=== PATIENT | female | born 1985 | race African-American/Black ===

== ENCOUNTER 2016-03-15 18:51 | Emergency (ER) | payer OTHER ==
--- NOTE | 2016-03-15 21:25 | EDDOCDS ---
Nurse's Notes [facility] Name: Melvin Swanson Age: 30 yrs Sex: Female : 1985 Arrival Date: 03/15/2016 Time: 18:51 Bed TR7 Private MD: Unknown, Family Dr Diagnosis: Abnormal uterine and vaginal bleeding, unspecified-retained P.O.C. Presentation: 03/15 18:56 Presenting complaint: Patient states: diagnosed having miscarriage January 22. Took hs1 methotrexate and followed up with MD and was told HCG levels still high. Patient reported that bleeding occurred for 2 weeks after that and rechecked of HCG still rising in late January. Again bled for another 2 weeks and recheck of HCG levels are 5000 in beginning of February, and OB there states needs to have rechecked when she gets here to [place]. Patient states she needs to see an OBGYN for follow up and is here for referral and here to check HCG levels as she recently moved during this week. Patient states bleeding started again on Tuesday and feels like a heavy period with blood blots. Risk factors: The patient reports no loss of conciousness prior to arrival. This patient has not had a hysterectomy. This patient has not begun menopause. Adult Sepsis Screening: The patient does not have new or worsening altered mentation. Patient's respiratory rate is less than 22. Systolic blood pressure is greater than 100. Patient has a qSOFA score of 0- Negative Sepsis Screen. Suicide/Homicide risk assessment- the patient denies having any suicidal and/or homicidal ideations and does not present with any other emotional, behavioral or mental health complaints. Status: The patient is a dependent. Transition of care: patient was not received from another setting of care. 18:56 Acuity: MIKAELA Level 3 hs1 18:56 Method Of Arrival: Walkin/Carried/Asstd hs1 Triage Assessment: 19:04 General: Appears in no apparent distress, Behavior is appropriate for age, cooperative. hs1 Pain: Denies pain. Pt Declines HIV testing. Neurological: Level of Consciousness is awake, alert, obeys commands, Oriented to person, place, time. Respiratory: No deficits noted. : Reports vaginal bleeding that is with clots moderate flow. 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 Vitamin Oral tab 1 tab once daily - PMHx: none; - PSHx: none; - Social history: Smoking status: Patient states was never smoker of tobacco. No barriers to communication noted, The patient speaks fluent Croatian, Speaks appropriately for age. - Family history: Not pertinent. - : The pt / caregiver states he / she is not on anticoagulants. Home medication list is obtained from the patient. - Exposure Risk Screening:: None identified. Screenin:04 Screening information is obtained from the patient. Fall risk: No risks identified. hs1 Assistance ADL's: requires no assistance with activities of daily living. Abuse/DV Screen: The patient / caregiver reports he/she is: not in a situation that causes fear, pain or injury. Nutritional screening: No deficits noted. Advance Directives: There is no active DNR order. home support is adequate. Assessment: 21:10 General: Appears in no apparent distress, comfortable, Behavior is appropriate for age, pml cooperative. Neurological: Level of Consciousness is awake, alert, Oriented to person, place, time. Cardiovascular: Capillary refill < 3 seconds. Respiratory: Airway is patent Respiratory effort is even, unlabored. GI: Abdomen is non- distended. Derm: Skin is normal. 21:10 General: pt requesting to leave AMA - does not want to complete ultrasound. reviewed pml risks of AMA including worsening condition, illness, and benefits of staying. pt verbalized understanding. . Vital Signs: 18:53 BP 126 / 62; Pulse 72; Resp 18 S; Temp 97.7(O); Pulse Ox 100% on R/A; Weight 64.41 kg dd6 (R); Height 5 ft. 5 in. (165.10 cm) (R); 18:53 Body Mass Index 23.63 (64.41 kg, 165.10 cm) dd6 Vitals: 18:53 Log In Time: March 15, 2016 at 18:51. dd6 ED Course: 18:53 Patient visited by Ramón Luciano PCA. dd6 18:53 Unknown, Family is Private Physician. dd6 18:53 Patient moved to Waiting dd6 18:54 Patient moved to Pre RCE dd6 19:03 Triage Initiated hs1 19:28 Patient moved to Triage 3 jmb 19:39 [facility] cc10 19:39 Ihsan Turner DO is Attending Physician. cc10 19:41 Patient moved to PD b 19:49 Patient visited by Gregorio Mcnally PA-C. cc10 19:49 Patient visited by Gregorio Mcnally PA-C. cc10 19:57 Hcg, Serum Quantitative Sent. ar3 21:04 Ruma Reed OB is Referral Physician. cc10 21:10 The patient / caregiver is instructed regarding the plan of care and ED course. Patient pml has correct armband on for positive identification. Bed in low position. Call light in reach. 21:10 No IV's were initiated during this patient's visit. pml 21:10 No procedures done that require assistance. pml 21:11 Patient moved to TR7 [facility] Order Results: Lab Order: Hcg, Serum Quantitative; SPEC'M 03/15/16 19:57 Test: HCG, SERUM QUANTITATIVE; Value: 7333; Units: MIU/ML; Status: F Test Note: ; GESTATIONAL AGE APPROXIMATE HCG RANGE (MIU/ML) 0.2-1 WEEK 5-50 1-2 WEEKS 50-500 2-3 WEEKS 100-5,000 3-4 WEEKS 500-10,000 4-5 WEEKS 1,000-50,000 5-6 WEEKS 10,000-100,000 6-8 WEEKS 15,000-200,000 2-3 MONTHS 10,000-100,000 NON FEMALES LESS THAN 3.0 Patient samples may contain human heterophilic antibodies that could react with immunoassays to give falsely elevated or depressed results. This assay has been designed to minimize interference from heterophilic antibodies. Elevated hCG levels have also been associated with trophoblastic disease and nontrophoblastic neoplasms. The possibility of having these diseases should be considered before a diagnosis of is made. This test is not intended for use as a surrogate marker for aiding in the diagnosis or monitoring the treatment of cancer patients. BeVocal methodology. Outcome: 21:04 Patient left against medical advice. cc10 21:10 Discharge Assessment: Patient awake, alert and oriented x 3. No cognitive and/or pml functional deficits noted. Patient verbalized understanding of disposition instructions. patient administered narcotics - no. The following High Risk Discharge criteria are identified: Yes, PFS and charge aware. Discharged to home ambulatory. Condition: good Condition: stable. Discharge instructions given to patient, Instructed on discharge instructions, follow up and referral plans. medication usage, Demonstrated understanding of instructions, medications, Pt was receptive of discharge instructions/ teaching. No special radiology studies were completed. Property sent home with patient. 21:24 Patient left the ED. pml Signatures: Ramón Luciano, CEMENTER HAND CEMENTER HAND dd6 Mee Gomez, CEMENTER HAND CEMENTER HAND ar3 Connie Cárdenas RN RN hs1 Joann BaeRN RN pml Judah VasquezRN RN Gregorio Hoskins PA-C PA-C cc10 Corrections: (The following items were deleted from the chart) 21:12 21:10 Assist provider with arterial line placement pml pml MTDD
--- NOTE | 2016-03-15 21:25 | EDDOCDS ---
Physician Documentation [facility] Name: Melvin Swanson Age: 30 yrs Sex: Female : 1985 Arrival Date: 03/15/2016 Time: 18:51 Bed TR7 Private MD: Unknown, Family Dr Disposition: 03/15/16 21:04 Patient has left against medical advice. Impression: Abnormal uterine and vaginal bleeding, unspecified - retained P.O.C.. - Patients states they are going to Home/Self Care. - Condition is Stable. - Discharge Instructions: Abnormal Uterine Bleeding. Medication Reconciliation form. Follow up: Ruma Reed, OB; When: Call to arrange an appointment; Reason: Wound/Symptom Recheck, Recheck today's complaints, Worsening of conditions, Continuance of care. - Problem is an ongoing problem. - Symptoms are unchanged. Historical: - Allergies: no known allergies; - Home Meds: 1. Vitamin Oral tab 1 tab once daily - PMHx: none; - PSHx: none; - Social history: Smoking status: Patient states was never smoker of tobacco. No barriers to communication noted, The patient speaks fluent Kittitian, Speaks appropriately for age. - Family history: Not pertinent. - : The pt / caregiver states he / she is not on anticoagulants. Home medication list is obtained from the patient. - Exposure Risk Screening:: None identified. 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 5 in. (165.10 cm) (R); 18:53 Body Mass Index 23.63 (64.41 kg, 165.10 cm) dd6 MDM: 19:50 Hcg, Serum Quantitative Ordered. EDMS 20:50 Hcg, Serum Quantitative Reviewed. cc10 Signatures: Dispatcher [employer] EDConnie Villa RN RN hs1 Joann Bae RN RN pml Gregorio Mcnally, PACharanC PACharanC cc10 MTDD
--- NOTE | 2016-03-17 22:24 | EDDOCDS ---
Physician Documentation [facility] Name: Melvin Swanson Age: 30 yrs Sex: Female : 1985 Arrival Date: 03/15/2016 Time: 18:51 Bed TR7 Private MD: Unknown, Family Dr Disposition: 03/15/16 21:04 Patient has left against medical advice. Impression: Abnormal uterine and vaginal bleeding, unspecified - retained P.O.C.. - Patients states they are going to Home/Self Care. - Condition is Stable. - Discharge Instructions: Abnormal Uterine Bleeding. Medication Reconciliation form. Follow up: Ruma Reed, OB; When: Call to arrange an appointment; Reason: Wound/Symptom Recheck, Recheck today's complaints, Worsening of conditions, Continuance of care. - Problem is an ongoing problem. - Symptoms are unchanged. Historical: - Allergies: no known allergies; - Home Meds: 1. Vitamin Oral tab 1 tab once daily - PMHx: none; - PSHx: none; - Social history: Smoking status: Patient states was never smoker of tobacco. No barriers to communication noted, The patient speaks fluent Cape Verdean, Speaks appropriately for age. - Family history: Not pertinent. - : The pt / caregiver states he / she is not on anticoagulants. Home medication list is obtained from the patient. - Exposure Risk Screening:: None identified. 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 5 in. (165.10 cm) (R); 18:53 Body Mass Index 23.63 (64.41 kg, 165.10 cm) dd6 MDM: 19:50 Hcg, Serum Quantitative Ordered. EDMS 20:50 Hcg, Serum Quantitative Reviewed. cc10 22:07 [facility] Payment Agreement was scanned into [employer] and attached to record. gjb 22:07 Financial registration complete. gjb 03/16 11:10 Refusal of Services was scanned into [employer] and attached to record. gb 11:10 T-Sheet-- Draft Copy was scanned into [employer] and attached to record. gb Signatures: Dispatcher [employer] EDMS Breanna Willis, Reg Reg gb Connie Cárdenas RN RN hs1 Joann BaeRN RN pml Gregorio Mcnally, PACharanC PAFunmilayo cc10 Ruth Calderon The chart was reviewed and I authenticate all verbal orders and agree with the evaluation and treatment provided.Attachments: 03/15 22:07 [facility] Payment Agreement zohreh 11:10 T-Sheet-- Draft Copy gb Chart Complete MTDD
--- NOTE | 2016-03-17 22:24 | EDDOCDS ---
Physician Documentation [facility] Name: Melvin Swanson Age: 30 yrs Sex: Female : 1985 Arrival Date: 03/15/2016 Time: 18:51 Bed TR7 Private MD: Unknown, Family Dr Disposition: 03/15/16 21:04 Patient has left against medical advice. Impression: Abnormal uterine and vaginal bleeding, unspecified - retained P.O.C.. - Patients states they are going to Home/Self Care. - Condition is Stable. - Discharge Instructions: Abnormal Uterine Bleeding. Medication Reconciliation form. Follow up: Ruma Reed, OB; When: Call to arrange an appointment; Reason: Wound/Symptom Recheck, Recheck today's complaints, Worsening of conditions, Continuance of care. - Problem is an ongoing problem. - Symptoms are unchanged. Historical: - Allergies: no known allergies; - Home Meds: 1. Vitamin Oral tab 1 tab once daily - PMHx: none; - PSHx: none; - Social history: Smoking status: Patient states was never smoker of tobacco. No barriers to communication noted, The patient speaks fluent Nepalese, Speaks appropriately for age. - Family history: Not pertinent. - : The pt / caregiver states he / she is not on anticoagulants. Home medication list is obtained from the patient. - Exposure Risk Screening:: None identified. 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 5 in. (165.10 cm) (R); 18:53 Body Mass Index 23.63 (64.41 kg, 165.10 cm) dd6 MDM: 19:50 Hcg, Serum Quantitative Ordered. EDMS 20:50 Hcg, Serum Quantitative Reviewed. cc10 22:07 [facility] Payment Agreement was scanned into [employer] and attached to record. gjb 22:07 Financial registration complete. gjb 03/16 11:10 Refusal of Services was scanned into [employer] and attached to record. gb 11:10 T-Sheet-- Draft Copy was scanned into [employer] and attached to record. gb Signatures: Dispatcher [employer] EDMS Breanna Willis, Reg Reg gb Connie Cárdenas RN RN hs1 Joann BaeRN RN pml Gregorio Mcnally, PACharanC PAFunmilayo cc10 Ruth Calderon The chart was reviewed and I authenticate all verbal orders and agree with the evaluation and treatment provided.Attachments: 03/15 22:07 [facility] Payment Agreement zohreh 11:10 T-Sheet-- Draft Copy gb Chart Complete MTDD
--- NOTE | 2016-03-17 22:25 | EDDOCDS ---
Nurse's Notes [facility] Name: Melvin Swanson Age: 30 yrs Sex: Female : 1985 Arrival Date: 03/15/2016 Time: 18:51 Bed TR7 Private MD: Unknown, Family Dr Diagnosis: Abnormal uterine and vaginal bleeding, unspecified-retained P.O.C. Presentation: 03/15 18:56 Presenting complaint: Patient states: diagnosed having miscarriage January 22. Took hs1 methotrexate and followed up with MD and was told HCG levels still high. Patient reported that bleeding occurred for 2 weeks after that and rechecked of HCG still rising in late January. Again bled for another 2 weeks and recheck of HCG levels are 5000 in beginning of February, and OB there states needs to have rechecked when she gets here to [place]. Patient states she needs to see an OBGYN for follow up and is here for referral and here to check HCG levels as she recently moved during this week. Patient states bleeding started again on Tuesday and feels like a heavy period with blood blots. Risk factors: The patient reports no loss of conciousness prior to arrival. This patient has not had a hysterectomy. This patient has not begun menopause. Adult Sepsis Screening: The patient does not have new or worsening altered mentation. Patient's respiratory rate is less than 22. Systolic blood pressure is greater than 100. Patient has a qSOFA score of 0- Negative Sepsis Screen. Suicide/Homicide risk assessment- the patient denies having any suicidal and/or homicidal ideations and does not present with any other emotional, behavioral or mental health complaints. Status: The patient is a dependent. Transition of care: patient was not received from another setting of care. 18:56 Acuity: MIKAELA Level 3 hs1 18:56 Method Of Arrival: Walkin/Carried/Asstd hs1 Triage Assessment: 19:04 General: Appears in no apparent distress, Behavior is appropriate for age, cooperative. hs1 Pain: Denies pain. Pt Declines HIV testing. Neurological: Level of Consciousness is awake, alert, obeys commands, Oriented to person, place, time. Respiratory: No deficits noted. : Reports vaginal bleeding that is with clots moderate flow. 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 Vitamin Oral tab 1 tab once daily - PMHx: none; - PSHx: none; - Social history: Smoking status: Patient states was never smoker of tobacco. No barriers to communication noted, The patient speaks fluent Guatemalan, Speaks appropriately for age. - Family history: Not pertinent. - : The pt / caregiver states he / she is not on anticoagulants. Home medication list is obtained from the patient. - Exposure Risk Screening:: None identified. Screenin:04 Screening information is obtained from the patient. Fall risk: No risks identified. hs1 Assistance ADL's: requires no assistance with activities of daily living. Abuse/DV Screen: The patient / caregiver reports he/she is: not in a situation that causes fear, pain or injury. Nutritional screening: No deficits noted. Advance Directives: There is no active DNR order. home support is adequate. Assessment: 21:10 General: Appears in no apparent distress, comfortable, Behavior is appropriate for age, pml cooperative. Neurological: Level of Consciousness is awake, alert, Oriented to person, place, time. Cardiovascular: Capillary refill < 3 seconds. Respiratory: Airway is patent Respiratory effort is even, unlabored. GI: Abdomen is non- distended. Derm: Skin is normal. 21:10 General: pt requesting to leave AMA - does not want to complete ultrasound. reviewed pml risks of AMA including worsening condition, illness, and benefits of staying. pt verbalized understanding. . Social Work Consult: 21:59 LWBS/AMA AMA: Patient is refusing further stabilizing treatment at [facility], although ml4 offered treatment regardless of method of payment or ability to pay. Patient is aware that this action is being undertaken against the advice of the medical staff at [facility]. pt did notify ED staff. Patient / Guardian did not sign a Refusal of Services form. Pt left before being seen by PSA. PSA will attempt to follow up tomorrow to make sure she followed up with Ruma Reed OB Due to RN's concerns. 03/16 20:09 Social Work Note: Left a message on pt's voicemail, awaiting a call-back.... ml4 Vital Signs: 03/15 18:53 BP 126 / 62; Pulse 72; Resp 18 S; Temp 97.7(O); Pulse Ox 100% on R/A; Weight 64.41 kg dd6 (R); Height 5 ft. 5 in. (165.10 cm) (R); 18:53 Body Mass Index 23.63 (64.41 kg, 165.10 cm) dd6 Vitals: 18:53 Log In Time: March 15, 2016 at 18:51. dd6 ED Course: 18:53 Patient visited by Ramón Luciano PCA. dd6 18:53 Unknown, Family Dr is Private Physician. dd6 18:53 Patient moved to Waiting dd6 18:54 Patient moved to Pre RCE dd6 19:03 Triage Initiated hs1 19:28 Patient moved to Triage 3 jmb 19:39 Gregorio Mcnally PA-C is PHCP. cc10 19:39 Ihsan Turner DO is Attending Physician. cc10 19:41 Patient moved to PD2 / jmb 19:49 Patient visited by Gregorio Mcnally PA-C. cc10 19:49 Patient visited by Gregorio Mcnally PA-C. cc10 19:57 Hcg, Serum Quantitative Sent. ar3 21:04 Ruma Reed OB is Referral Physician. cc10 21:10 The patient / caregiver is instructed regarding the plan of care and ED course. Patient pml has correct armband on for positive identification. Bed in low position. Call light in reach. 21:10 No IV's were initiated during this patient's visit. pml 21:10 No procedures done that require assistance. pml 21:11 Patient moved to TR7 jmb 21:31 Patient name changed from Nafisah\S\\S\Sky\S\ to Nafisah\S\ \S\Sky. EDMS 22:07 [facility] Payment Agreement was scanned into [employer] and attached to record. gjb 03/16 11:10 Refusal of Services was scanned into [employer] and attached to record. gb 11:10 T-Sheet-- Draft Copy was scanned into [employer] and attached to record. gb Attachments: 03/16 11:10 Refusal of Services gb Order Results: Lab Order: Hcg, Serum Quantitative; SPEC'M 03/15/16 19:57 Test: HCG, SERUM QUANTITATIVE; Value: 7333; Units: MIU/ML; Status: F Test Note: ; GESTATIONAL AGE APPROXIMATE HCG RANGE (MIU/ML) 0.2-1 WEEK 5-50 1-2 WEEKS 50-500 2-3 WEEKS 100-5,000 3-4 WEEKS 500-10,000 4-5 WEEKS 1,000-50,000 5-6 WEEKS 10,000-100,000 6-8 WEEKS 15,000-200,000 2-3 MONTHS 10,000-100,000 NON FEMALES LESS THAN 3.0 Patient samples may contain human heterophilic antibodies that could react with immunoassays to give falsely elevated or depressed results. This assay has been designed to minimize interference from heterophilic antibodies. Elevated hCG levels have also been associated with trophoblastic disease and nontrophoblastic neoplasms. The possibility of having these diseases should be considered before a diagnosis of is made. This test is not intended for use as a surrogate marker for aiding in the diagnosis or monitoring the treatment of cancer patients. OLED-T methodology. Outcome: 03/15 21:04 Patient left against medical advice. cc10 21:10 Discharge Assessment: Patient awake, alert and oriented x 3. No cognitive and/or pml functional deficits noted. Patient verbalized understanding of disposition instructions. patient administered narcotics - no. The following High Risk Discharge criteria are identified: Yes, PFS and charge aware. Discharged to home ambulatory. Condition: good Condition: stable. Discharge instructions given to patient, Instructed on discharge instructions, follow up and referral plans. medication usage, Demonstrated understanding of instructions, medications, Pt was receptive of discharge instructions/ teaching. No special radiology studies were completed. Property sent home with patient. 21:24 Patient left the ED. pml Signatures: Dispatcher [employer] EDMS Breanna Willis, Reg Reg gb Dianna Gustafson, PSA PSA ml4 DesormjohnuRamón, PROPELLANT CHARGE LOADER PROPELLANT CHARGE LOADER dd6 Mee Gomez, PROPELLANT CHARGE LOADER PROPELLANT CHARGE LOADER ar3 Connie Cárdenas, LINH RN hs1 Joann Bae,Judah Hayes RN, RN RN jmb Coniski, Colin, PA-C PA-C cc10 Ruth Calderon Corrections: (The following items were deleted from the chart) 21:12 21:10 Assist provider with arterial line placement pml pml Chart Complete MTDD
[2016-03-24] MEDS ORDERED: PRENTAB55 PO (11:59)
== END 2016-03-15 21:10 | disposition left against medical advice (07) ==
LOC: M ED 18:51
DX: O73.0 Retained placenta without hemorrhage (principal); Z79.899 Other long term (current) drug therapy

== ENCOUNTER → 2016-03-19 | Outpatient (CLI) | payer OTHER ==
--- NOTE | 2016-03-19 16:01 | REP ---
First trimester obstetric sonography: History: Positive test inappropriate quantitatively. New versus retained products of conception. Findings: Transabdominal and transvaginal scanning are performed. Uterine dimensions are 7.5 x 4.5 x 5.9 cm. Endometrial echo 0.6 cm thick. There is a hyperechoic heterogeneous area anteriorly and in the retroverted retroflexed uterus which does not appear to be within the endometrium but rather in the submucosal or myometrial zone. It is hypervascular and is suggestive of retained products of conception except is deep to the endometrium. The right ovary has a normal appearance measuring 2.7 x 1.9 x 2.4 cm left ovary measures 4.9 x 2.8 x 4.0 cm. There is a 3.6 x 3.0 x 2.6 cm involuting cyst in the left ovary and a trace of fluid is seen. Impression: Hypervascular heterogeneous nodular echogenic material in the submucosal/myometrial zone of the of the uterus, question retained products of conception versus fibroid. Trace of free fluid. A 3.6 cm involuting corpus luteum cyst left ovary. Signed by Brando Lancaster MD 03/19/2016 04:58 P
== END ==
LOC: M RAD 14:00
PROVIDERS: ATTEND Obstetrics & Gynecology
DX: Z33.1 Pregnant state, incidental (principal)

== ENCOUNTER → 2016-03-24 | Day surgery (SDC) | payer OTHER ==
[~2016-03-24] MED LIST: KETOROLAC 60 MG/2 ML VIAL (J1885) As Ordered ONE; LIDOCAINE 1% SDV INJ 30 ML VIAL As Ordered ONE; LIDOCAINE 1% SDV INJ 30 ML VIAL XX ONE; LIDOCAINE 2% INJ 100 MG/5 ML SDV (FOR ANES.) As Ordered ONE; LR 1,000 ML IV SCH; METHYLERGONOVINE MALEATE 0.2 MG/ML VIAL (J2210) As Ordered ONE; METHYLERGONOVINE MALEATE 0.2 MG/ML VIAL (J2210) IM ONE; MIDAZOLAM INJ 2 MG/2 ML VIAL (J2250) As Ordered ONE; ONDANSETRON 4MG/2ML VIAL (J2405) As Ordered ONE; ONDANSETRON 4MG/2ML VIAL (J2405) IV PRN; OXYTOCIN INJ 10 UNITS/ML VIAL (J2590) IV ONE; PERCOCET 5MG/325MG TAB As Ordered ONE; PERCOCET 5MG/325MG TAB PO PRN; PRENTAB55 PO; PROPOFOL 200 MG/20 ML VIAL As Ordered ONE; SILVER NITRATE APPLICATOR As Ordered ONE; fentaNYL 100 MCG/2 ML INJECTION (J3010) As Ordered ONE; fentaNYL 100 MCG/2 ML INJECTION (J3010) IV PRN; miSOPROStol 200 MCG TAB (S0191) As Ordered ONE; miSOPROStol 200 MCG TAB (S0191) PR ONE
[2016-03-24 11:16] LABS: MEAN CORPUSCULAR HEMOGLOBIN 30.3 pg (27.0-33.0); MEAN CORPUSCULAR HGB CONC 32.7 g/dl (32.0-36.5); MEAN CORPUSCULAR VOLUME 92.5 fl (80.0-96.0); RED CELL DISTRIBUTION WIDTH 12.2 % (11.5-14.5); WHITE BLOOD COUNT 4.5 K/mm3 (4.0-10.0)
[2016-03-24] MEDS: HYDROmorphone HCL 1 MG/ML SYRINGE (J1170) IV PRN ×4 (13:39→14:00)
[2016-03-24 15:30] VITALS: BP 117/69
--- NOTE | 2016-03-25 08:00 | RO ---
DATE OF PROCEDURE: 03/24/2016 PREOPERATIVE DIAGNOSIS: Retained products of conception. POSTOPERATIVE DIAGNOSIS: Retained products of conception. PROCEDURE PERFORMED: Suction dilation and curettage. SURGEON: Rasheeda Atkins MD SNUFF GRINDER AND SCREENER: None. ANESTHESIA: General endotracheal. ESTIMATED BLOOD LOSS: 20 mL. INTRAVENOUS (IV) FLUIDS: 400 mL lactated Ringer's. URINE OUTPUT: 25 mL. CONDITION: Stable. COMPLICATIONS: None. SPECIMEN: Intrauterine contents. ANTIBIOTIC: Not indicated. INDICATIONS: The patient is a 30-year-old, (G) 1, para (P) 0-0-1-0, who had missed diagnosed in [place] in January 2016. She was treated with medical management with Cytote. Her HCG levels were followed and were down trending. However, in February 2015, they were noticed to be up trending. She has since relocated to [place], and her last hCG was about 7000. She also reported heavy vaginal bleeding. So decision was made to proceed with surgical management. FINDINGS: Approximately 8 week size mobile uterus with normal contour. No adnexal masses palpated. OPERATIVE PROCEDURE: The risks, benefits, indications and alternatives of the procedure were reviewed with the patient and informed consent was obtained. The patient was taken to the operating room where general anesthesia was found to be adequate. Patient was then prepped and draped in the normal sterile fashion. An exam under anesthesia was then performed and a significant mobile midline 8 week size uterus with no adnexal masses or fullness appreciated. The patient was then prepped and draped in a normal sterile fashion and the bladder was drained using in-and-out catheter. Sterile speculum was placed in the patient's vagina and the cervix was visualized. Paracervical block was then performed using 10 mL of 1% lidocaine without epinephrine. Single-tooth tenaculum was then used to grasp the anterior lip of the cervix. The cervix was then gently serially dilated to a size 14-Yoruba Thomas dilator. A 7 mm curved suction catheter was then introduced into the uterine cavity and gently advanced to the uterine fundus. The suction device was then activated to 60 mmHg and the catheter rotated to clear the uterus of products of conception. Approximately five passes were performed and a small amount of tissue was obtained and gentle sharp curettage was then performed until a gritty texture was noted. One final pass of the suction catheter was then performed with minimal tissue obtained. All tissue was sent to pathology for review. The single-tooth tenaculum then removed from the anterior lip of the cervix. The tenaculum sites were then noted to be hemostatic. All instruments were then removed from the patient's vagina. The patient tolerated procedure well. All instruments were then removed from the vagina. A vaginal sweep was then performed and confirmed no retained foreign objects remained in the vagina. At the completion of the case, the sponge and needle counts were correct times two. The patient tolerated the procedure well and was taken to the postanesthesia care unit (PACU) in stable condition.
== END | disposition home or self-care (01) ==
LOC: M SDC 10:43
PROVIDERS: ATTEND Obstetrics & Gynecology
DX: O02.1 Missed abortion (principal)
CPT/HCPCS: 36415; 59820; 85027; 86850; 86900; 86901; 86920; 88305; J1170; J1885; J2250; J2405; J3010

== ENCOUNTER → 2016-04-19 | Outpatient (CLI) | payer OTHER ==
[~2016-04-19] MED LIST changes: -KETOROLAC 60 MG/2 ML VIAL (J1885) As Ordered ONE; -LIDOCAINE 1% SDV INJ 30 ML VIAL As Ordered ONE; -LIDOCAINE 1% SDV INJ 30 ML VIAL XX ONE; -LIDOCAINE 2% INJ 100 MG/5 ML SDV (FOR ANES.) As Ordered ONE; -LR 1,000 ML IV SCH; -METHYLERGONOVINE MALEATE 0.2 MG/ML VIAL (J2210) As Ordered ONE; -METHYLERGONOVINE MALEATE 0.2 MG/ML VIAL (J2210) IM ONE; -MIDAZOLAM INJ 2 MG/2 ML VIAL (J2250) As Ordered ONE; -ONDANSETRON 4MG/2ML VIAL (J2405) As Ordered ONE; -ONDANSETRON 4MG/2ML VIAL (J2405) IV PRN; -OXYTOCIN INJ 10 UNITS/ML VIAL (J2590) IV ONE; -PERCOCET 5MG/325MG TAB As Ordered ONE; -PERCOCET 5MG/325MG TAB PO PRN; -PROPOFOL 200 MG/20 ML VIAL As Ordered ONE; -SILVER NITRATE APPLICATOR As Ordered ONE; -fentaNYL 100 MCG/2 ML INJECTION (J3010) As Ordered ONE; -fentaNYL 100 MCG/2 ML INJECTION (J3010) IV PRN; -miSOPROStol 200 MCG TAB (S0191) As Ordered ONE; -miSOPROStol 200 MCG TAB (S0191) PR ONE
--- NOTE | 2016-04-19 10:25 | REP ---
Chest two views HISTORY: Elevated HCG Comparison: None The lungs are clear. The heart is normal in size. The pulmonary vasculature is normal in appearance. The bony structure is intact. IMPRESSION: No acute disease. Signed by Brenton Corona MD 04/19/2016 10:17 A
--- NOTE | 2016-04-19 12:52 | REP ---
Pelvic sonography: History: History of miscarriage February 10, 2016. Beta hCG levels never returning to normal and now up-trending most recently, 17,560 on April 08. Rule out Choriocarcinoma. The patient is status post suction dilation and curettage on March 24, 2016. Comparison sonography March 19, 2016 showed hypervascular heterogeneous nodular echogenic material within the submucosal or myometrial zone of the uterus. Sonographic findings: Transabdominal and transvaginal scanning are performed. Uterine dimensions are 9.7 x 4.2 x 4.8 cm on transabdominal scanning. The uterus is somewhat retroverted. There is a hypervascular mass lesion complex in character in the uterine fundal myometrium. This is poorly defined and measures approximately 3.1 cm in greatest diameter. It is best displayed on color Doppler images which demonstrate network of hypervascular vessels surrounding some necrotic or cystic areas and some hyperechoic components in the myometrium. The endometrial echo is 0.5 cm thick. There is a focal hyperechoic 0.5 cm nodule in the cervix as well visible today. This was not seen previously. Urinary bladder biswas are smooth. The right ovary is normal measuring 2.8 x 1.6 x 1.8 cm. Its Doppler flow is normal with resistive index 0.60. The left ovary measures 4.0 x 1.8 x 2.7 cm. Its Doppler flow is normal, resistive index 0.62. There is a cyst in the left ovary measuring 3.0 x 2.1 x 1.4 cm which appears simple. This is consistent with a mature follicle cyst. Impression: Ill-defined hypervascular myometrial mass in the retroverted uterine fundus roughly 3 cm in size. 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 Signed by Brando Lancaster MD 04/19/2016 03:35 P
== END ==
LOC: M RAD 09:45
PROVIDERS: ATTEND Obstetrics & Gynecology
DX: R74.9 Abnormal serum enzyme level, unspecified (principal); R19.09 Other intra-abdominal and pelvic swelling, mass and lump; N85.4 Malposition of uterus

== ENCOUNTER → 2016-05-12 | Outpatient (CLI) | payer OTHER ==
[~2016-05-12] MED LIST changes: +GASTROGRAFIN SOLUTION 30ML (Q9963) As Ordered ONE; +ISOVUE-370 76% 100ML VIAL (Q9967) As Ordered ONE
--- NOTE | 2016-05-12 18:20 | REP ---
CT Head without contrast HISTORY: None COMPARISON: None There is no intraparenchymal hemorrhage, acute infarct, mass or midline shift. The ventricular system is normal in appearance. The subarachnoid space in the posterior fossa is prominent consistent with minimal cerebellar volume loss. here is no extra cerebral collection. There is no fracture. The visualized sinuses are clear. IMPRESSION: 1. There is no intracranial lesion. 2. Minimal cerebellar volume loss. Signed by Brenton Corona MD 05/12/2016 05:28 P
--- NOTE | 2016-05-13 09:48 | REP ---
Clinical: Cholera. Technique: Axial contrast enhanced images from the thoracic inlet to the upper abdomen using 100 ml Isovue 370 intravenous contrast material with coronal and sagittal re-formations. Findings: With the exception of two noncalcified nodules in the left lower lobe measuring up to 5 mm (image 40, 48), the bilateral lung brody are well-aerated and clear. No consolidation. No pleural effusion. No pneumothorax. Tracheobronchial tree is patent. No axillary, hilar, or mediastinal adenopathy. Heart and pericardium are normal. Thoracic aorta is normal. Surrounding musculoskeletal structures are intact. Impression: 1. Two small noncalcified nodules in the left lower lobe up to 5 mm. These likely represent benign granulomata. Consider 9 to 12 month follow-up examination unless prior examinations are available for comparison. 2. Contrast enhanced chest CT is otherwise normal. Signed by Kenny Vuong MD 05/13/2016 09:39 A
--- NOTE | 2016-05-13 09:57 | REP ---
Clinical: Cholera. Technique: Axial contrast enhanced images from the lung bases to the pubic symphysis new oozing oral and 100 ml Isovue 370 intravenous contrast material with coronal and sagittal re-formations. Findings: Lung bases are clear. Visualized heart and pericardium normal. Liver, spleen, pancreas, gallbladder, bilateral adrenal glands and kidneys are normal. The enteric system is unremarkable and without obstruction or acute inflammatory process. Normal terminal ileum and appendix are identified in the right lower quadrant. Pelvis demonstrates normal bladder. There appears to be heterogeneous mass at the fundus of the uterus with suspected central areas of enhancement as well as what appears to be a 5.3 cm left adnexal cyst. While this may represent atypical fibroid, uterine neoplasm cannot be excluded. No No ascites. No free air. No intraperitoneal or retroperitoneal adenopathy. Abdominal aorta and vasculature is normal. Surrounding musculoskeletal structures are intact. Impression: 1. Given the patient's presumed diagnosis of Cholera, the enteric system is normal and there is no ascites or adenopathy. The liver is normal and without hepatic infectious changes. 2. Heterogeneous mass-like lesion at the fundus of the uterus with suspected fluid and areas of vascularity / enhancement along with suspected 5.3 cm left adnexal cyst. These findings require gynecological correlation and pelvic ultrasound is recommended as well. Differential diagnosis includes but is not limited to atypical fibroid and large left ovarian cyst as well as neoplasm. Of note, a recently performed pelvic ultrasound was used for comparison and the finding within the fundus of the uterus corresponds to current lesion on CT. History given at the time related to abnormal HCG levels and choriocarcinoma as well as retained products of conception are within differential diagnosis. Signed by Kenny Vuong MD 05/13/2016 09:48 A
== END ==
LOC: M RAD 15:44
PROVIDERS: ATTEND Obstetrics & Gynecology
DX: A00.9 Cholera, unspecified (principal); R91.8 Other nonspecific abnormal finding of lung field
CPT/HCPCS: 70450; 71260; 74178; Q9963; Q9967

== ENCOUNTER → 2016-05-26 | Outpatient (REF) | payer OTHER ==
[~2016-05-26] MED LIST changes: -GASTROGRAFIN SOLUTION 30ML (Q9963) As Ordered ONE; -ISOVUE-370 76% 100ML VIAL (Q9967) As Ordered ONE
[2016-05-26 14:00] LABS: CONTROL LINE HCG INT CTR LINE PRESENT
[2016-05-26 16:37] LABS: HCG, SERUM QUANTITATIVE 11009 MIU/ML
== END ==
LOC: M LAB REF 12:53
PROVIDERS: ATTEND Internal Medicine Medical Oncology
DX: O01.9 Hydatidiform mole, unspecified (principal)

== ENCOUNTER → 2016-06-07 | Outpatient (REF) | payer OTHER | LOC: M LAB REF 16:55 | PROVIDERS: ATTEND Internal Medicine Medical Oncology | DX: Z51.11 Encounter for antineoplastic chemotherapy (principal); O01.9 Hydatidiform mole, unspecified ==

== ENCOUNTER → 2016-06-14 | Outpatient (REF) | payer OTHER | LOC: M LAB REF 16:41 | PROVIDERS: ATTEND Internal Medicine Medical Oncology | DX: O01.9 Hydatidiform mole, unspecified (principal) ==

== ENCOUNTER → 2016-06-28 | Outpatient (REF) | payer OTHER | LOC: M LAB REF 16:39 | PROVIDERS: ATTEND Internal Medicine Medical Oncology | DX: O01.9 Hydatidiform mole, unspecified (principal) ==

== ENCOUNTER → 2016-07-12 | Outpatient (REF) | payer OTHER | LOC: M LAB REF 16:27 | PROVIDERS: ATTEND Internal Medicine Medical Oncology | DX: O01.9 Hydatidiform mole, unspecified (principal) ==

== ENCOUNTER → 2016-07-20 | Outpatient (REF) | payer OTHER | LOC: M LAB REF 16:30 | PROVIDERS: ATTEND Internal Medicine Medical Oncology | DX: O01.9 Hydatidiform mole, unspecified (principal) ==

== ENCOUNTER → 2016-08-05 | Outpatient (REF) | payer OTHER | LOC: M LAB REF 16:48 | PROVIDERS: ATTEND Internal Medicine Medical Oncology | DX: O01.9 Hydatidiform mole, unspecified (principal) ==

== ENCOUNTER → 2016-08-25 | Outpatient (REF) | payer OTHER | LOC: M LAB REF 12:34 | PROVIDERS: ATTEND Internal Medicine Medical Oncology | DX: O01.9 Hydatidiform mole, unspecified (principal) ==

== ENCOUNTER 2016-11-13 06:13 | Emergency (ER) | payer OTHER ==
[~2016-11-13] VITALS: Ht 165.1 cm; Wt 63.6 kg
[2016-11-13 08:49] LABS: BASO % 0.4 % (0.0-1.0); EOS % 1.1 % (0.0-3.0); LARGE UNSTAINED CELL # 0.1 K/mm3 (0.0-0.4); LARGE UNSTAINED CELL % 2.7 % (0.0-4.0); LYMPH # 1.9 K/mm3 (1.5-6.5); LYMPH % 43.1 % (24.0-44.0); MEAN CORPUSCULAR HEMOGLOBIN 31.8 pg (27.0-33.0); MEAN CORPUSCULAR HGB CONC 34.4 g/dl (32.0-36.5); MEAN CORPUSCULAR VOLUME 92.3 fl (80.0-96.0); MONO # 0.2 K/mm3 (0.0-0.8); MONO % 4.9 % (0.0-5.0); NEUTROPHILS # 2.1 K/mm3 (1.8-7.7); NEUTROPHILS % 47.8 % (36.0-66.0); PLATELET COUNT, AUTOMATED 209 k/mm3 (150-450); RED CELL DISTRIBUTION WIDTH 12.3 % (11.5-14.5); WHITE BLOOD COUNT 4.3 K/mm3 (4.0-10.0)
[2016-11-13 09:08] LABS: ANION GAP 7 MEQ/L (8-16); BLOOD UREA NITROGEN 9 MG/DL (7-18); CALCIUM LEVEL 8.7 MG/DL (8.5-10.1); CARBON DIOXIDE LEVEL 24 MEQ/L (21-32); CHLORIDE LEVEL 108 MEQ/L (98-107); CREATININE FOR GFR 0.69 MG/DL (0.55-1.02); GLOMERULAR FILTRATION RATE > 60.0 (>60); GLUCOSE, FASTING 81 MG/DL (70-105); POTASSIUM SERUM 3.8 MEQ/L (3.5-5.1); SODIUM LEVEL 139 MEQ/L (136-145)
[2016-11-13 09:55] VITALS: BP 127/81
== END 2016-11-13 09:58 | disposition home or self-care (01) ==
LOC: M ED 06:13
DX: O20.9 Hemorrhage in early pregnancy, unspecified (principal); N93.8 Other specified abnormal uterine and vaginal bleeding; Z3A.01 Less than 8 weeks gestation of pregnancy

== ENCOUNTER 2017-05-07 04:13 | Emergency (ER) | payer OTHER ==
[2017-05-07 05:27] LABS: BASO % 0.2 % (0.0-1.0); EOS # 0.3 10^3/uL (0.0-0.50); HEMATOCRIT 32.5 % (36.0-47.0); IMMATURE GRANULOCYTE % 0.3 % (0-3.0); LYMPH # 2.8 10^3/uL (1.5-4.5); LYMPH % 23.1 % (24.0-44.0); MEAN CORPUSCULAR HGB CONC 33.8 g/dl (32.0-36.5); MEAN CORPUSCULAR VOLUME 91.5 fl (80.0-96.0); MONO # 1.1 10^3/uL (0.0-0.8); MONO % 8.7 % (0.0-5.0); NEUTROPHILS % 65.7 % (36.0-66.0); PLATELET COUNT, AUTOMATED 202 10^3/uL (150-450); RED BLOOD COUNT 3.55 10^6/uL (4.00-5.40); RED CELL DISTRIBUTION WIDTH 13.2 % (11.5-14.5); WHITE BLOOD COUNT 12.2 10^3/uL (4.0-10.0)
[2017-05-07 06:11] LABS: HCG, SERUM QUANTITATIVE 20246 MIU/ML
== END 2017-05-07 06:36 | disposition home or self-care (01) ==
LOC: M ED 04:13
DX: O20.0 Threatened abortion (principal); Z3A.18 18 weeks gestation of pregnancy
CPT/HCPCS: 76811

== ENCOUNTER 2017-09-25 06:07 | Outpatient (CLI) | payer OTHER | END 2017-09-25 07:30 | disposition home or self-care (01) | LOC: M LDO 06:07 | DX: O47.1 False labor at or after 37 completed weeks of gestation (principal); Z3A.37 37 weeks gestation of pregnancy; Z87.59 Personal history of other complications of pregnancy, childbirth and the puerperium; Z92.21 Personal history of antineoplastic chemotherapy | CPT/HCPCS: 59025 ==

== ENCOUNTER 2017-09-30 01:03 | Outpatient (CLI) | payer OTHER | END 2017-09-30 04:00 | disposition home or self-care (01) | LOC: M LDO 01:03 | DX: O47.1 False labor at or after 37 completed weeks of gestation (principal); Z3A.38 38 weeks gestation of pregnancy ==